=== PATIENT | female | born 1965 | race Caucasian/White ===

== ENCOUNTER 2021-07-06 17:06 | Emergency (ER) | payer OTHER ==
[2021-07-06 17:34] VITALS: BP 121/84; PULSE 76; TEMP 98.7; BMI 28.3
[2021-07-06] MEDS ORDERED: IBUPROFEN 400 MG TABLET (FP) PO ONE ×2 (18:35→18:44)
== END 2021-07-06 19:08 | disposition home or self-care (01) ==
LOC: FER 17:06
DX: M25.512 Pain in left shoulder (principal)
CPT/HCPCS: 73030-TC-LT-FY; 99283-25